=== PATIENT | male | born 2000 | race Two or more races ===

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

== ENCOUNTER 2019-05-11 12:46 | Emergency (ER) | payer SELFPAY ==
[~2019-05-11] VITALS: Ht 167.6 cm; Wt 118.1 kg
[2019-05-11 14:22] VITALS: BP 114/61
--- NOTE | 2019-05-11 14:54 | RAD ---
PROCEDURE: ANKLE RIGHT 3V, FOOT RIGHT 3V STUDY DATE: 05/11/2019 CLINICAL INDICATION / HISTORY: Right foot injury with pain and swelling and unable to bear weight.. TECHNIQUE: AP, lateral and oblique views of the right foot. COMPARISON: None FINDINGS: No fracture or dislocation is identified. The bone density is normal. The joint space widths are maintained, and there are no erosions to suggest an inflammatory arthropathy. No soft tissue abnormality is seen. IMPRESSION: No acute osseous abnormality. PROCEDURE: ANKLE RIGHT 3V, FOOT RIGHT 3V STUDY DATE: 05/11/2019 CLINICAL INDICATION / HISTORY: Right foot injury with pain and swelling unable to wear weight. TECHNIQUE: Right ankle 3 views. COMPARISON: Right foot x-rays same day FINDINGS: The ankle mortise is approximated, and the talar dome is unremarkable. The joint space widths are maintained. No fracture or dislocation is identified. Lateral malleolus soft tissue swelling is appreciated. IMPRESSION: Right lateral ankle sprain. No fracture or dislocation. Electronically signed by: Lis Juarez MD (05/11/2019 2:51 PM) [id number]
--- NOTE | 2019-05-11 15:11 | PHYS DOC ---
Past Medical History Past Medical History: No Pertinent History, Asthma, Pneumonia Past Surgical History: Tonsillectomy Smoking Status: Never Smoker Alcohol Use: None Drug Use: None Adult General Chief Complaint Chief Complaint: ANKLE PROBLEM [facility] HPI Patient is a 18 year old male who reports he had fallen out of a tree, 1 foot high, and on his way down, he had stepped on a brick, twisting and hearing a pop in his right ankle, states occurred at 10:00, his foot had inverted. States he has had some discomfort, and he has continued to have some discomfort in his right ankle since that time. States he has not taken any medications for. States when he tries to walk, he has discomfort. Denies paresthesia. States some pain on the top of his foot as well. Review of Systems Review of Systems Constitutional: Denies fever or chills [] Cardiovascular: No additional information not addressed in HPI [] Musculoskeletal: Denies back pain reports right ankle pain [] Integument: Denies rash or skin lesions [] Neurologic: Denies headache, focal weakness or sensory changes [] Endocrine: Denies polyuria or polydipsia [] All other systems were reviewed and found to be within normal limits, except as documented in this note. Allergies Allergies Allergies Coded Allergies Type Severity Reaction Last Updated Verified Penicillins Allergy Intermediate 10/24/17 Yes Physical Exam Physical Exam Constitutional: Well developed, well nourished, no acute distress, non-toxic appearance. [] Cardiovascular:Heart rate regular rhythm, no murmur [] Skin: Warm, dry, no erythema, no rash. [] Back: No tenderness, no CVA tenderness. [] Extremities: No tenderness, no cyanosis, no clubbing, ROM intact. Minimal edema noted to leg. Swelling.[] Neurologic: Alert and oriented X 3, normal motor function, normal sensory function, no focal deficits noted. [] Psychologic: Affect normal, judgement normal, mood normal. [] Current Patient Data Vital Signs Vital Signs Date Time Temp Pulse Resp B/P (MAP) Pulse Ox O2 Delivery O2 Flow Rate FiO2 05/11/19 14:22 98.3 88 20 114/61 (78) 96 Room Air 98.3 EKG EKG [] Radiology/Procedures Radiology/Procedures COMPARISON: None FINDINGS: No fracture or dislocation is identified. The bone density is normal. The joint space widths are maintained, and there are no erosions to suggest an inflammatory arthropathy. No soft tissue abnormality is seen. IMPRESSION: No acute osseous abnormality. PROCEDURE: ANKLE RIGHT 3V, FOOT RIGHT 3V STUDY DATE: 05/11/2019 CLINICAL INDICATION / HISTORY: Right foot injury with pain and swelling unable to wear weight. TECHNIQUE: Right ankle 3 views. COMPARISON: Right foot x-rays same day FINDINGS: The ankle mortise is approximated, and the talar dome is unremarkable. The joint space widths are maintained. No fracture or dislocation is identified. Lateral malleolus soft tissue swelling is appreciated. IMPRESSION: Right lateral ankle sprain. No fracture or dislocation. Electronically signed by: Lis Juarez MD (05/11/2019 2:51 PM) [id number] Course & Med Decision Making Course & Med Decision Making Pertinent Labs and Imaging studies reviewed. (See chart for details) [Given no acute fracture, we'll put patient in ankle brace, crutches. Would recommend follow-up with primary care and consideration fourth of follow-up with continued discomfort after one week. Dragon Disclaimer Dragon Disclaimer This electronic medical record was generated, in whole or in part, using a voice recognition dictation system. Departure Departure Impression: Primary Impression: Right ankle sprain Disposition: HOME, SELF-CARE Condition: STABLE Referrals: NO PCP (PCP) Patient Instructions: Ankle Sprain Additional Instructions: As we discussed, continue to use Tylenol or ibuprofen. He may take 1000 g of Tylenol every 6 hours, or 600 mg of ibuprofen every 6 hours. Continue to wear the ankle brace anytime you're moving around, also use the crutches during this time when you are moving. If he continues to have discomfort after a week, follow-up with your primary care provider to determine if they think he needs orthopedic follow-up. Problem Qualifiers Primary Impression: Right ankle sprain Encounter type: initial encounter Involved ligament of ankle: unspecified ligament Qualified Codes: S93.401A - Sprain of unspecified ligament of right ankle, initial encounter NIKKI CARMEN APRN May 11, 2019 15:11
== END 2019-05-11 15:24 | disposition home or self-care (01) ==
LOC: ER 12:46
DX: S93.491A Sprain of other ligament of right ankle, initial encounter (principal); M79.671 Pain in right foot; J45.909 Unspecified asthma, uncomplicated; Z90.89 Acquired absence of other organs; Z88.0 Allergy status to penicillin; W14.XXXA Fall from tree, initial encounter; Y93.89 Activity, other specified; Y92.89 Other specified places as the place of occurrence of the external cause; Y99.8 Other external cause status
CPT/HCPCS: 73610; 73630; 99284

== ENCOUNTER 2021-02-22 11:03 | Emergency (ER) | payer SELFPAY ==
[~2021-02-22] VITALS: Ht 167.6 cm; Wt 130.4 kg
[2021-02-22 11:16] VITALS: BP 142/96
[2021-02-22] MEDS ORDERED: DEXAMETHASONE 4 MG TABLET PO ONE (12:15)
[2021-02-22] MEDS ORDERED: TACR100O2 TP (12:15)
--- NOTE | 2021-02-22 12:18 | PHYS DOC ---
Past Medical History Past Medical History: No Pertinent History, Asthma, Pneumonia Additional Past Medical Histor: CHRONIC R HAND/FINGERS RASH Past Surgical History: Tonsillectomy Smoking Status: Never Smoker Alcohol Use: None Drug Use: None General Adult EDM: Chief Complaint: SKIN PROBLEM HPI: HPI: Patient is a 20 year old male who presents with a rash in the webspaces of his fingers on the right hand. Patient reports he has had this rash since high school, and over the years it has worsened and improved periodically. Today, he states it is painful and cracked. Previous treatment included topical corticosteroids, which he states did not improve the rash. He denies fever, chills, erythema surrounding the rash, discharge. Review of Systems: Review of Systems: ROS negative except as mentioned in HPI. Heart Score: C/O Chest Pain: No Allergies: Allergies: Allergies Coded Allergies Type Severity Reaction Last Updated Verified Penicillins Allergy Intermediate 10/24/17 Yes Physical Exam: PE: Constitutional: Well developed, well nourished, no acute distress, non-toxic appearance. Cardiovascular: Heart rate regular rhythm, no murmur. Lungs & Thorax: Bilateral breath sounds clear to auscultation. Skin: Dry, pink flaking rash with some cracks noted in the finger spaces between digits 3/4 and 4/5 that excludes the palmar surface and extends distally towards the PIP joint without surrounding erythema, warmth or any discharge. Skin otherwise warm, dry, no erythema, no rash. Extremities: No tenderness, no cyanosis, no clubbing, ROM intact, no edema. Neurologic: Alert and oriented x4, no focal deficits noted. Current Patient Data: Vital Signs: Vital Signs Date Time Temp Pulse Resp B/P (MAP) Pulse Ox O2 Delivery O2 Flow Rate FiO2 02/22/21 11:16 98.3 83 15 142/96 (111) 98 Room Air 98.3 Course & Med Decision Making: Course & Med Decision Making Pertinent Labs and Imaging studies reviewed. (See chart for details) Patient's rash is consistent with atopic dermatitis/eczema. Patient states that hydrocortisone cream in the past has not improved his rash. Advised that the patient use emollient such as Aquaphor or Eucerin on the rash multiple times daily. Additionally, he will be provided with dexamethasone p.o. here in the department. Patient will be provided prescription for tacrolimus topical for refractory eczema. Additionally, he will be provided with contact information for dermatology clinic. Patient understands and is agreeable to discharge plan. Kelly Disclaimer: Kelly Disclaimer: This electronic medical record was generated, in whole or in part, using a voice recognition dictation system. Departure Departure Impression: Primary Impression: Atopic dermatitis Qualified Codes: L20.9 - Atopic dermatitis, unspecified Disposition: HOME / SELF CARE / HOMELESS Condition: STABLE Referrals: NO PCP (PCP) Patient Instructions: Eczema Additional Instructions: As discussed, you should use Aquaphor and/or Eucerin cream on the affected area. Additionally, provided prescription for tacrolimus which is a cream you can apply as well twice per day. Contact information for dermatology provided below. You may call them at your convenience for further evaluation and management. Please return to the department for worsening symptoms or development of any new ones, including fever or discharge from the rash. [facility] [place] Located in [address] [address] Please schedule an appointment with your primary care doctor for follow-up as well. They can evaluate your elevated blood pressure reading and determine if any treatment is necessary. Scripts Tacrolimus (PROTOPIC) 100 Gm Oint...g. 1 CHARLINE TP BID for 30 Days, #1 BOX 0 Refills apply to affected area(s) Prov: JUAN DHILLON 02/22/21 JUAN DHILLON Feb 22, 2021 12:18
== END 2021-02-22 12:39 | disposition home or self-care (01) ==
LOC: ER 11:03
DX: L20.9 Atopic dermatitis, unspecified (principal); J45.909 Unspecified asthma, uncomplicated; Z88.0 Allergy status to penicillin
CPT/HCPCS: 99283